=== PATIENT | female | born 2000 | race Caucasian/White ===

== ENCOUNTER 2024-10-21 22:44 | Inpatient (IN) | payer MEDICAID ==
[~2024-10-21] VITALS: Ht 149.9 cm; Wt 67.6 kg
[2024-10-21 23:17] LABS: BASOPHILS % 0.3 % (0.0-2.0); EOSINOPHILS % 0.4 % (0.0-5.0); HEMATOCRIT. 33.6 % (36.0-48.0); HEMOGLOBIN. 11.1 g/dL (12.0-16.0); MEAN CORPUSCULAR HEMOGLOBIN 27.6 pg (28.0-32.0); MEAN CORPUSCULAR VOLUME 83.5 fL (81.0-99.0); MEAN PLATELET VOLUME 7.4 fl (7.4-10.4); MONOCYTES % 7.4 % (2.0-8.0); NEUTROPHILS % 78.9 % (40.0-76.0); PLATELET 301 x1000/uL (130-400); RED BLOOD CELL COUNT 4.03 mill/uL (4.2-5.4); RED CELL DISTRIBUTION WIDTH 13.8 % (11.6-14.6); WHITE BLOOD COUNT 13.9 x1000/uL (4.5-11.0)
[2024-10-21 23:20] LABS: CHLORIDE 103 mEq/L (98-107); POTASSIUM 4.1 mEq/L (3.5-5.1); SODIUM 137 mEq/L (136-145)
[2024-10-21 23:21] LABS: CARBON DIOXIDE 24 mEq/L (21-32)
[2024-10-21 23:22] LABS: CALCIUM 9.4 mg/dL (8.7-10.4)
[2024-10-21 23:26] LABS: CREATININE 0.7 mg/dL (0.6-1.0); GLUCOSE 105 mg/dL (70-105); UREA NITROGEN BLOOD 9 mg/dL (9-23)
[2024-10-21 23:52] LABS: B-HCG QUANTITATIVE 1437 mIU/mL (<3)
[2024-10-22] MEDS: SODIUM CHLORIDE 0.9% 1,000 ML IV ONE (00:17)
[2024-10-22 00:24] LABS: CLARITY URINE CLOUDY (CLEAR); COLOR URINE YELLOW (YELLOW); GLUCOSE URINE NEGATIVE (NEGATIVE); KETONES URINE 2+ (NEGATIVE); LEUKOCYTE ESTERASE URINE TRACE (NEGATIVE); NITRITE URINE NEGATIVE (NEGATIVE); OCCULT BLOOD URINE 3+ (NEGATIVE); PH URINE 5.5 (4.5-8.0); PROTEIN URINE 1+ (NEGATIVE); SPECIFIC GRAVITY URINE 1.032 (1.005-1.030); UROBILINOGEN URINE 0.2 E.U./dL (0.2-1.0)
[2024-10-22 00:37] LABS: *AMPHETAMINES SCREEN URINE NEGATIVE (NEGATIVE); *BARBITURATES SCREEN URINE NEGATIVE (NEGATIVE); *BENZODIAZEPINES SCREEN URINE NEGATIVE (NEGATIVE); *COCAINE SCREEN URINE NEGATIVE (NEGATIVE)
[2024-10-22 00:38] LABS: CANNABINOID URINE SCREEN NEGATIVE (NEGATIVE); ECSTASY MDMA SCREEN URINE NEGATIVE (NEGATIVE); METHADONE URINE SCREEN NEGATIVE (NEGATIVE); OPIATES URINE SCREEN NEGATIVE (NEGATIVE); PHENCYCLIDINE URINE SCREEN NEGATIVE (NEGATIVE)
[2024-10-22] MEDS: FENTANYL CITRATE/PF 50MCG/ML 2ML VIAL IV ONE (00:58)
[2024-10-22 01:02] LABS: SQUAMOUS EPITHELIAL CELL URINE 3+ /lpf (RARE/1+)
[2024-10-22 01:03] LABS: BACTERIA URINE 2+
[2024-10-22 01:04] LABS: AMORPHOUS SEDIMENT URINE 1+ /lpf; RBC URINE 0-2 /hpf (0-2)
[2024-10-22] MEDS ORDERED: SKIN ADHESIVE 0.7 GM EA TOP ONE (02:48)
[2024-10-22] MEDS ORDERED: BUPIVACAINE HCL/PF 0.5% (5MG/ML) 10ML ONE (03:52)
[2024-10-22] MEDS ORDERED: ONDANSETRON HCL 4MG/2ML INJ IV PRN ×2 (04:15)
[2024-10-22] MEDS ORDERED: DEXT 5%/0.45% NACL KCL 20MEQ/L 1,000 ML IV SCH (04:15)
[2024-10-22] MEDS ORDERED: HYDRALAZINE 20MG/ML VIAL IV PRN (04:15)
[2024-10-22] MEDS ORDERED: HYDROMORPHONE HCL/PF 1MG/ML INJ IV PRN ×2 (04:15)
[2024-10-22] MEDS ORDERED: MORPHINE SULFATE 4 MG/ML INJ (FOR IV/IM USE) IV PRN (04:15)
[2024-10-22] MEDS ORDERED: LABETALOL 5MG/ML 4ML INJ IV PRN (04:15)
[2024-10-22] MEDS ORDERED: GLYCOPYRROLATE 0.2MG/ML VIAL 5ML IV PRN (04:15)
[2024-10-22] MEDS: HYDROMORPHONE HCL/PF 1MG/ML INJ IV PRN (04:29)
[2024-10-22 05:10] LABS: HEMATOCRIT 29.2 % (36.0-48.0); HEMOGLOBIN 9.7 g/dL (12.0-16.0)
[2024-10-22] MEDS: CEFAZOLIN 1000MG PREMIX 50 ML IV SCH ×2 (06:25→15:17)
[2024-10-22] MEDS: IBUPROFEN 800MG TABLET PO SCH (06:26)
[2024-10-22 06:30] VITALS: BP 108/52; PULSE 93; RESP 19; TEMP 36.3
[2024-10-22 08:00] VITALS: BP 95/44; PULSE 110; RESP 19; TEMP 36.7; O2SAT 99
[2024-10-22] MEDS: ACETAMINOPHEN WITH CODEINE 300/30MG TABLET PO SCH (08:21)
[2024-10-22] MEDS ORDERED: NALOXONE HCL 0.4MG/ML VIAL IV PRN (11:00)
[2024-10-22 12:00] VITALS: BP 101/56; PULSE 102; RESP 19; TEMP 36.9; O2SAT 99
[2024-10-22] MEDS: DEXT 5%/0.45% NACL KCL 20MEQ/L 1,000 ML IV SCH (12:00)
[2024-10-22 16:00] VITALS: BP 100/60; PULSE 97; RESP 19; TEMP 37.1; O2SAT 100
[2024-10-22 17:19] LABS: HEPATITIS B SURFACE ANTIGEN NEGATIVE (Negative)
[2024-10-22 17:40] LABS: HEPATITIS C AB NON REACTIVE (Neg) (Negative)
[2024-10-22 20:00] VITALS: BP 99/52; PULSE 93; RESP 18; TEMP 36.9; O2SAT 99
[2024-10-23] VITALS: BP 118/71; PULSE 105; RESP 18; TEMP 36.7; O2SAT 99
[2024-10-23 04:00] VITALS: BP 94/63; PULSE 99; RESP 19; TEMP 36.5; O2SAT 99
[2024-10-23 06:43] LABS: BASOPHILS % 0.2 % (0.0-2.0); EOSINOPHILS % 0.3 % (0.0-5.0); HEMATOCRIT. 23.8 % (36.0-48.0); HEMOGLOBIN. 7.9 g/dL (12.0-16.0); LYMPHOCYTES % 17.7 % (20.0-50.0); MEAN CORPUSCULAR VOLUME 84.8 fL (81.0-99.0); MEAN PLATELET VOLUME 7.7 fl (7.4-10.4); MONOCYTES % 8.6 % (2.0-8.0); NEUTROPHILS % 73.2 % (40.0-76.0); PLATELET 197 x1000/uL (130-400); RED BLOOD CELL COUNT 2.81 mill/uL (4.2-5.4); RED CELL DISTRIBUTION WIDTH 13.6 % (11.6-14.6); WHITE BLOOD COUNT 9.2 x1000/uL (4.5-11.0)
[2024-10-23 07:11] LABS: CHLORIDE 109 mEq/L (98-107); POTASSIUM 3.8 mEq/L (3.5-5.1); SODIUM 140 mEq/L (136-145)
[2024-10-23 07:12] LABS: CALCIUM 8.3 mg/dL (8.7-10.4); CARBON DIOXIDE 24 mEq/L (21-32)
[2024-10-23 07:17] LABS: CREATININE 0.5 mg/dL (0.6-1.0); GLUCOSE 108 mg/dL (70-105)
[2024-10-23 07:30] LABS: UREA NITROGEN BLOOD < 5 mg/dL (9-23)
[2024-10-23 08:00] VITALS: BP 97/50; PULSE 97; RESP 18; TEMP 36.4; O2SAT 100
[2024-10-23 12:00] VITALS: PULSE 84; RESP 19; TEMP 37.2; O2SAT 98
[2024-10-23 16:00] VITALS: BP 130/62; PULSE 96; RESP 18; TEMP 37.1; O2SAT 98
[2024-10-23 20:00] VITALS: BP 97/47; PULSE 105; RESP 19; TEMP 36.6; O2SAT 97
[2024-10-24] VITALS: BP 101/51; PULSE 88; RESP 19; TEMP 36.3; O2SAT 97
[2024-10-24 04:00] VITALS: BP 101/57; PULSE 82; RESP 19; TEMP 36.5; O2SAT 98
[2024-10-24 08:00] VITALS: BP 98/60; PULSE 94; RESP 20; TEMP 36.7; O2SAT 100
[2024-10-24] MEDS ORDERED: IBUP-2030 PO (10:26)
[2024-10-24 11:40] VITALS: BP 98/60; PULSE 94; TEMP 98; O2SAT 100
== END 2024-10-24 12:07 | disposition home or self-care (01) | DRG 547 ==
LOC: ER 22:44 → 8EST 10-22 01:44
PROVIDERS: ADMIT Internal Medicine; ATTEND Internal Medicine
PROC: 0UB50ZZ Excision of Right Fallopian Tube, Open Approach (ICD-10-PCS; principal; 2024-10-22)
PROC: 10D20ZZ Extraction of Products of Conception, Ectopic, Open Approach (ICD-10-PCS; 2024-10-22)
DX: O00.101 Right tubal pregnancy without intrauterine pregnancy (principal); N93.9 Abnormal uterine and vaginal bleeding, unspecified
CPT/HCPCS: 36415; 76801; 80048; 80305; 81003; 84702; 85014; 85018; 85025; 86705; 86850; 86900; 86920; 87340; 88302; 93005; 99291; J0665; J0690; J1171; J3010; J7030